=== PATIENT | male | born 1960 | race Hispanic/Latino ===

== ENCOUNTER 2025-03-23 22:58 | Emergency (ER) | payer BC ==
[~2025-03-23] VITALS: Ht 170.2 cm; Wt 84.4 kg
--- NOTE | 2025-03-23 23:12 | EKG ---
[facility] Test Date: 2025-03-23 Test Time: 23:09:33 Pat Name: RUTH WAKEFIELD Department: ED Room: Gender: M Integrity Director: [id number] : 1960 Requested By: LYNSEY HANNAH Order Number: [id number] Reading MD: Yuri Weber Measurements Intervals [place] Rate: 73 P: 30 HI: 173 QRS: 12 QRSD: 82 T: 63 QT: 377 QTc: 415 Interpretive Statements Sinus rhythm Left ventricular hypertrophy No previous ECG available for comparison Electronically Signed On 03-25-2025 10:31:56 CDT by Yuri Weber Please click the below link to view image of tracing.
[2025-03-23] MEDS: LAbetaLOL 20MG SYG IV ONE (23:30)
[2025-03-23 23:42] LABS: BASOPHILS # (AUTO) 0.01 K/uL (0.00-0.20); BASOPHILS % (AUTO) 0.2 % (0.0-5.0); EOSINOPHILS # (AUTO) 0.01 K/uL (0.00-0.70); EOSINOPHILS % (AUTO) 0.2 % (0.0-8.0); HEMATOCRIT 46.9 % (42-54); IMMATURE GRANULOCYTE ABSOLUTE 0.02 K/uL (0-1); LYMPHOCYTES % (AUTO) 16.5 % (21.0-51.0); MEAN CORPUSCULAR HEMOGLOBIN 28.7 pg (27.0-33.0); MEAN CORPUSCULAR HGB CONC 34.3 g/dL (32.0-36.0); MEAN CORPUSCULAR VOLUME 83.6 fL (79-99); MONOCYTES # (AUTO) 0.3 K/uL (0.1-1.0); MONOCYTES % (AUTO) 4.9 % (3.0-13.0); NEUTROPHILS # (AUTO) 4.7 K/uL (1.8-7.7); NEUTROPHILS % (AUTO) 77.9 % (40.0-77.0); PLATELET COUNT (AUTO) 307 K/uL (130-400); RED BLOOD CELL COUNT(AUTO) 5.61 MIL/uL (4.50-6.20); RED CELL DISTRIBUTION WIDTH 13.2 % (11.0-15.5); WHITE BLOOD COUNT (AUTO) 6.1 K/uL (4.8-10.8)
[2025-03-23 23:51] LABS: CREATININE 0.7 mg/dL (0.5-1.3); POTASSIUM 3.9 mmol/L (3.5-5.1)
[2025-03-24 00:05] LABS: B-TYPE NATRIURETIC PEPTIDE 60 pg/mL (0-100); MAGNESIUM 1.6 mg/dL (1.80-2.40)
--- NOTE | 2025-03-24 00:05 | HMCIMG ---
CHEST 1VW HISTORY: Shortness of breath COMPARISON: None FINDINGS: A frontal projection of the chest was obtained. Mild bilateral pulmonary infiltrates are seen may be related to mild pulmonary vascular congestion with possible superimposed pneumonitis. The heart is borderline enlarged. Degenerative changes are seen. No evidence of aortic calcification is seen. IMPRESSION: 1. Mild bilateral pulmonary infiltrates are seen may be related to mild pulmonary vascular congestion with possible superimposed pneumonitis.
[2025-03-24 00:27] VITALS: RESP 18
--- NOTE | 2025-03-24 00:27 | ERN ---
ED Note History of Present Illness Stated Complaint: C/O HIGH B/P WITH HEADACHE Chief Complaint: Hypertension Time Seen by MD: 23:12 Time Seen by Midlevel: 23:12 Dictation: The patient is a 65-year-old male with a history of hypertension, CAD who prese nts to the emergency department with complaints of elevated blood pressure and occipital headache onset today. Patient reports that three weeks ago he started with a upper respiratory symptoms but has now resolved. Patient denies any chest pain or shortness of breath. Denies any cough. Denies any fevers. Patient reports he was seen at two emergency departments today and was di scharged on both occasions. Patient reports he had a CT head done which was normal at one of the ERs. Patient reports he continues with elevated blood pressure and headache. Allergies: Coded Allergies: No Known Allergies (Unverified Allergy, Unknown, 03/23/25) Past Medical History Past Medical History: High Cholesterol, Hypertension Surgical History: Other RN Note Reviewed/Agreed w/PFSH: Yes Review of System Dictation Constitutional: Negative for fever,chills, and weight loss Eyes: Negative for injury, pain,redness, and discharge ENT: Negative for injury,pain or swelling Cardiovascular: Negative for chest pain, palpitations, and edema Respiratory: Negative for shortness of breath, cough, and wheezing, Abdomen/GI: Negative for abdominal pain, nausea, vomiting, diarrhea, and constipation Back: Negative for injury and pain : Negative for injury, bleeding and discharge MS/Extremity: Negative for injury and deformity Skin: Negative for rash, and discoloration Neuro: Negative for weakness, numbness, tingling, and seizure positive for headache Psych: Negative for suicide ideation, homicidal ideation, and hallucinations Initial Vital Sign VS Vital Signs Date Time Temp Pulse Resp B/P (MAP) Pulse Ox O2 Delivery O2 Flow Rate FiO2 03/23/25 23:00 97.0 101 20 189/112 97 Room Air 03/24/25 00:27 0 21 Physical Exam Dictation Vital Signs reviewed General Appearance: Alert, oriented x 3, no acute distress, well developed, nourished. Head and Face: non-traumatic. Eyes: PERRL, pink conjunctivas, eyelid no trauma, anterior chamber with arcus senilis. Ears: Pinnas intact and no signs of trauma or erythema ear canals clear and no discharge TM no erythema Nose: No discharge, no bleeding. Oropharynx: Mouth normal, tongue pink. pharynx clear,no erythema, tonsils no exudates, no abscesses noted, mucous membrane moist Neck: Supple, non-tender, no thyromegaly, no masses, no JVD, no bruits Breast:Deferred Chest:No tenderness, no crepitus, no paradoxical movement, no retractions Lungs:Clear, well-ventilated, symmetric, no rales, no wheezing, no rhonchi, no stridor, good breath sounds bilaterally Heart: Regular rate, regular rhythm, no murmur, no gallops Vascular: no peripheral edema, Abdomen: Soft, positive bowel sounds, nondistended, no guarding, nontender, no rebound, no masses no hepatomegaly, no splenomegaly, no Jennings's sign, no hernias. Rectal: Deferred Genital: Deferred Neurological: Normal speech, motor function intact, sensory function intact , upper extremities equal in strength, lower extremities equal in strength, no facial droop Musculoskeletal: Neck nontender, full range of motion, back nontender, full range of motion, Extremities: nontender, full range of motion Skin: Color pink, dry, no turgor, no rash, no lacerations, no abrasions, no contusions. Lymphatic: Deferred Results (Laboratory/Radiology) Laboratory/Radiology Laboratory Tests Test 03/23/25 23:32 03/24/25 01:13 White Blood Count 6.1 K/uL (4.8-10.8) Red Blood Count 5.61 MIL/uL (4.50-6.20) Hemoglobin 16.1 g/dL (14.0-18.0) Hematocrit 46.9 % (42-54) Mean Corpuscular Volume 83.6 fL (79-99) Mean Corpuscular Hemoglobin 28.7 pg (27.0-33.0) Mean Corpuscular Hemoglobin Concent 34.3 g/dL (32.0-36.0) Red Cell Distribution Width 13.2 % (11.0-15.5) Platelet Count 307 K/uL (130-400) Mean Platelet Volume 9.9 fL (7.5-10.5) Immature Granulocyte % (Auto) 0.3 % (0-1) Neutrophils (%) (Auto) 77.9 % (40.0-77.0) H Lymphocytes (%) (Auto) 16.5 % (21.0-51.0) L Monocytes (%) (Auto) 4.9 % (3.0-13.0) Eosinophils (%) (Auto) 0.2 % (0.0-8.0) Basophils (%) (Auto) 0.2 % (0.0-5.0) Neutrophils # (Auto) 4.7 K/uL (1.8-7.7) Lymphocytes # (Auto) 1.0 K/uL (1.0-4.8) Monocytes # (Auto) 0.3 K/uL (0.1-1.0) Eosinophils # (Auto) 0.01 K/uL (0.00-0.70) Basophils # (Auto) 0.01 K/uL (0.00-0.20) Absolute Immature Granulocyte (auto 0.02 K/uL (0-1) Nucleated Red Blood Cells 0.0 % (0.0-0.19) Sodium Level 135 mmol/L (136-145) L Potassium Level 3.9 mmol/L (3.5-5.1) Chloride Level 97 mmol/L (101-111) L Carbon Dioxide Level 26 mmol/L (21-32) Blood Urea Nitrogen 12 mg/dL (7-18) Creatinine 0.7 mg/dL (0.5-1.3) Glomerular Filtration Rate Calc 104 mL/min (>90) Random Glucose 141 mg/dL (70-105) H Total Calcium 9.2 mg/dL (8.5-10.1) Magnesium Level 1.60 mg/dL (1.80-2.40) L Total Creatine Kinase 603 U/L (21-232) *H Troponin I High Sensitivity 46 ng/L (4-75) B-Type Natriuretic Peptide 60 pg/mL (0-100) Urine Color COLORLESS (YELLOW) Urine Appearance CLEAR (CLEAR) Urine pH 5.5 (5.0-8.0) Urine Specific [place] 1.004 (1.001-1.031) Urine Protein NEGATIVE mg/dL (NEGATIVE) Urine Glucose (UA) NEGATIVE mg/dL (NEGATIVE) Urine Ketones NEGATIVE mg/dL (NEGATIVE) Urine Occult Blood NEGATIVE (NEGATIVE) Urine Nitrate NEGATIVE (NEGATIVE) Urine Bilirubin NEGATIVE mg/dL (NEGATIVE) Urine Urobilinogen 0.2 mg/dL (0.2-1.0) Urine Leukocyte Esterase NEGATIVE Vera/uL Urine Opiates Screen NEGATIVE (NEGATIVE) Urine Barbiturates Screen NEGATIVE (NEGATIVE) Urine Phencyclidine Screen NEGATIVE (NEGATIVE) Urine Amphetamines Screen NEGATIVE (NEGATIVE) Urine Benzodiazepines Screen NEGATIVE (NEGATIVE) Urine Cocaine Screen NEGATIVE (NEGATIVE) Urine Marijuana (THC) Screen NEGATIVE (NEGATIVE) REASON: sob ORDERING PHYSICIAN: SERGO HAGAN [employer]ACK CLE[employer]ER PROCEDURE: CXR1VW - CHEST 1VW CHEST 1VW HISTORY: Shortness of breath COMPARISON: None FINDINGS: A frontal projection of the chest was obtained. Mild bilateral pulmonary infiltrates are seen may be related to mild pulmonary vascular congestion with possible superimposed pneumonitis. The heart is borderline enlarged. Degenerative changes are seen. No evidence of aortic calcification is seen. IMPRESSION: 1. Mild bilateral pulmonary infiltrates are seen may be related to mild pulmonary vascular congestion with possible superimposed pneumonitis. Labs Reviewed?: Yes EKG: (+) rhythm (Sinus rhythm) EKG Comment: Date:03/23/2025 Time:2309 Ventricular rate:73 NV interval:173 QRS duration:82 QT/QTc:377 EKG interpretation: Sinus rhythm, left ventricular hypertrophy Reviewed by ED Attending no STEMI ED Course ED Course Orders Procedure Category Date Status Time 12 Lead Ekg Tracing- EKG 03/23/25 Complete Technical 23:04 Cbc With Differential LAB 03/23/25 Complete 23:25 B-Type Natriuretic LAB 03/23/25 Complete Peptide 23:25 Chest 1vw RAD 03/23/25 Resulted 23:25 0.9%Nacl 1000ml (Ns PHA 03/23/25 Complete 1000ml) 23:30 Magnesium LAB 03/23/25 Complete 23:25 Creatine Kinase, Total LAB 03/23/25 Complete 23:25 Troponin I High LAB 03/23/25 Complete Sensitivity 23:25 Urinalysis Profile LAB 03/23/25 Complete 23:25 Basic Metabolic Panel LAB 03/23/25 Complete 23:25 Drug Screen Urine LAB 03/23/25 Complete 23:25 Labetalol 20mg Syg PHA 03/23/25 Complete (Trandate 20mg Syg) 23:30 Acetaminophen 500mg PHA 03/24/25 Complete Tab (Tylenol 500mg T 00:00 Magnesium Oxide PHA 03/24/25 Complete (Mag-Ox) 00:30 Creatine Kinase, Total LAB 03/24/25 In Process 02:33 Current Medications Medications (Trade) Dose Ordered Sig/James Route PRN Reason Start Time Stop Time Status Last Admin Dose Admin Acetaminophen (TYLenol 500MG TAB) 1,000 mg ONCE ONCE PO 03/24/25 00:00 03/24/25 00:01 DC Labetalol HCl (TRANdate 20MG SYG) 10 mg ONCE ONCE IV 03/23/25 23:30 03/23/25 23:31 DC Magnesium Oxide (Mag-Ox) 400 mg ONCE ONCE PO 03/24/25 00:30 03/24/25 00:31 DC 03/24/25 00:58 Sodium Chloride 1,000 ml @ 0 mls/hr ONCE ONCE IV 03/23/25 23:30 03/23/25 23:31 DC 03/24/25 00:43 Vital Signs Date Time Temp Pulse Resp B/P (MAP) Pulse Ox O2 Delivery O2 Flow Rate FiO2 03/24/25 00:27 97.5 64 18 138/83 97 Room Air* 0 21 03/23/25 23:00 97.0 101 20 189/112 97 Room Air Medical Decision Making MDM The patient is a 65-year-old male with a history of hypertension, CAD who presents to the emergency department with complaints of elevated blood pressure and occipital headache onset today. Patient reports that three weeks ago he started with a upper respiratory symptoms but has now resolved. Patient denies any chest pain or shortness of breath. Denies any cough. Denies any fevers. Patient reports he was seen at two emergency departments today and was discharged on both occasions. Patient reports he had a CT head done which was normal at one of the ERs. Patient reports he continues with elevated blood pressure and headache. CBC showed no leukocytosis, no anemia, chemistry showed mild hyponatremia, hypochloremia, hypomagnesemia, CK of 603, troponin negative, urinalysis unremarkable. Chest x-ray showed male pulmonary infiltrates. Patient's blood pressure improved spontaneously and patient reported no longer having a headache. Patient received a L of fluids in ER. Differential diagnosis: Hypertensive emergency, tension headache, electrolyte imbalance, dehydration Need for hospitalization: Patient does not meet criteria for hospitalization. There are no social concerns with this patient. DX & DISP Disposition: Discharge Departure Impression: Primary Impression: Headache Additional Impressions: Mild dehydration, Elevated blood pressure reading, Hypomagnesemia Condition: Stable Additional Instructions: Please follow up with your PCP in 1-2 days. Take your medications as prescribed by your PCP FOLLOW-UP WITH PRIMARY CARE PROVIDER IN 1 TO 2 DAYS. TAKE MEDICATIONS DIRECTED HERE IN THE EMERGENCY ROOM. OKAY TO CONTINUE HOME MEDICATIONS UNLESS OTHERWISE DISCUSSED DURING YOUR VISIT IN THE EMERGENCY ROOM TODAY. RETURN TO YOUR NEAREST EMERGENCY ROOM IF SYMPTOMS WORSEN OR IF THERE IS NO IMPROVEMENT. CALL 911 IF YOU NEED IMMEDIATE ASSISTANCE. TAKE TYLENOL OR MOTRIN [id number] NEEDED AND IF NO CONTRAINDICATIONS ARE PRESENT. INCREASE ORAL HYDRATION. A WOUND CULTURE OR URINE CULTURE WAS ORDERED HERE IN THE EMERGENCY ROOM DEPARTMENT PLEASE FOLLOW-UP WITH PRIMARY CARE PROVIDER AND ADVISE THEM TO GET REPEAT PORTS FROM OUR FACILITY. IF YOU HAD ANY GIULIANA WRAP/SPLINTS THAT WERE APPLIED HERE, PLEASE DO NOT REMOVE THEM UNTIL YOU SEE YOUR PRIMARY CARE OR SPECIALTY. Referrals: SELF,REFERRAL (PCP) Time of Disposition: 02:56 I have reviewed the case, and I agree with, Diagnosis and Plan SERGO HAGANP Mar 24, 2025 00:27
[2025-03-24] MEDS: 0.9%NACL 1000ML 1,000 ML IV ONE (00:43)
[2025-03-24] MEDS: acetaMINOPHEN 500 MG TABLET PO ONE (00:44)
--- NOTE | 2025-03-24 00:44 | NUR ---
PATIENT STATED HE TOOK TYLENOL @2000, MIDLEVEL MADE AWARE
[2025-03-24] MEDS: MAGNESIUM OXIDE 400 MG TABLET PO ONE (00:58)
[2025-03-24 01:22] LABS: APPEARANCE,URINE CLEAR (CLEAR); BILIRUBIN,URINE NEGATIVE (NEGATIVE); COLOR,URINE COLORLESS (YELLOW); GLUCOSE, URINE (UA) NEGATIVE (NEGATIVE); KETONES,URINE NEGATIVE (NEGATIVE); LEUKOCYTE ESTERASE ,URINE NEGATIVE Leu/uL (NEGATIVE); NITRATE,URINE NEGATIVE (NEGATIVE); OCCULT BLOOD,URINE NEGATIVE (NEGATIVE); PH,URINE 5.5 (5.0-8.0); PROTEIN,URINE NEGATIVE (NEGATIVE); UROBILINOGEN,URINE 0.2 mg/dL (0.2-1.0)
[2025-03-24 01:23] LABS: ADD UA MICROSCOPIC NO
[2025-03-24 01:29] LABS: AMPHET/METH SCREEN,URINE NEGATIVE (NEGATIVE); BARBITURATE SCREEN, URINE NEGATIVE (NEGATIVE); BENZODIAZEPINES SCREEN,URINE NEGATIVE (NEGATIVE); CANNABINOID SCREEN,URINE NEGATIVE (NEGATIVE); COCAINE SCREEN,URINE NEGATIVE (NEGATIVE); OPIATE SCREEN,URINE NEGATIVE (NEGATIVE); PHENCYCLIDINE SCREEN,URINE NEGATIVE (NEGATIVE)
[2025-03-24 03:15] VITALS: BP 131/77; PULSE 62; TEMP 97.8; O2SAT 98
== END 2025-03-24 03:24 | disposition home or self-care (01) ==
LOC: EDH 22:58
DX: I10 Essential (primary) hypertension (principal); R51.9 Headache, unspecified; E86.0 Dehydration; E83.42 Hypomagnesemia; E78.00 Pure hypercholesterolemia, unspecified
CPT/HCPCS: 99284; 71045; 82550 ×2; 83735; 84484; 80048; 83880; 80305; 85025; 36415 ×2; 93005; 81003; 96360; J7030

== ENCOUNTER → 2025-07-13 | Outpatient (CLI) | payer BC ==
[~2025-07-13] MED LIST: IOHEXOL 350 MG/ML 100ML INFUS..BTL IV ONE
--- NOTE | 2025-07-14 13:27 | CARDIOLOGY ---
RAD REPORT: CORNARY CT ANGIO RADIOLOGY REPORT: CORONARY CT ANGIOGRAPHY DATE: Jul 13, 2025 QUALITY: Excellent CLINICAL HISTORY AND INDICATION: [ chest pain ] TECHNIQUE: After obtaining a preliminary nursery rn image, contrast imaging performed on an [employer] [id number] scanner. A dedicated, limited window, coronary imaging protocol was used, with single breath-hold, retrospective ECG gating, and automated arrhythmia rejection. 100 cc of low osmolar contrast agent: Omnipaque 350 was delivered via a 18-gauge IV catheter in the right antecubital fossa, using a power injector and followed by 60 cc of normal saline bolus as a chaser. Collimated images were reformatted at 0.5 mm intervals, and sent to an offline independent workstation for interpretation, using 3D anatomic reconstructions: Curved multiplanar reconstructions, maximum intensity projections, and multiplanar imaging. No metoprolol was administered prior to scanning due to low baseline heart rate. 0.8 mg SL nitroglycerin was given. CORONARY ARTERY DESCRIPTIONS: The coronary arteries arise in normal position. Left main coronary artery: Normal caliber vessel that bifurcates into the LAD and LCx. There is calcified plaque in the distal left main with <20% stenosis. Left anterior descending coronary artery: Normal caliber vessel and gives rise to diagonal and septal branches. There is calcified plaque in the proximal LAD with 30-40% stenosis. There is calcified plaque in the proximal D2 with 20-30% stenosis. Left circumflex coronary artery: Normal caliber, nondominant and gives rise to a large OM branch. LANDING SUPPORT SPECIALIST of mid LCx with distal filling via collaterals. Right coronary artery: Large, dominant vessel giving rise to the PL and PDA branches. There is calcified plaque in the proximal and mid RCA with 30-40% stenosis. CAD-RADs: 5, LANDING SUPPORT SPECIALIST of LCx. Thoracic Aorta: Normal diameter. Janine Panchal MD Cardiovascular Disease [facility] JANINE PANCHAL MD Jul 14, 2025 13:27
== END | disposition home or self-care (01) ==
LOC: RAH 07:30
PROVIDERS: ATTEND Internal Medicine Cardiovascular Disease
DX: I25.119 Atherosclerotic heart disease of native coronary artery with unspecified angina pectoris (principal); I25.84 Coronary atherosclerosis due to calcified coronary lesion
CPT/HCPCS: 75574; Q9967